=== PATIENT | female | born 1985 | race Caucasian/White ===

== ENCOUNTER 2016-05-11 07:30 | Inpatient (IN) | payer OTHER ==
[2016-05-11] MEDS: LACTATED RINGERS SOLUTION 1,000 ML IV SCH (08:05)
[2016-05-11] MEDS ORDERED: CITRIC ACID/SODIUM CITRATE 30 ML UNIT-DOSE CUP PO ONE (08:35)
[2016-05-11 08:43] VITALS: BMI 20.1
--- NOTE | 2016-05-11 08:46 | HP ---
Past Medical History - Primary Care Physician PCP:: Klaudia Hardy - Admission Chief Complaint: 30 yrs 36.4 weeks , previous c/secx2 , onset of LP since 6.00am , came by ambulence.. requests for repeat c/section. pt refusing History of Present Illness: care at [facility] High risk due to previous 2 children have end stage renal disease ( ESRD ) . pt states she had work up done , current fetus is normal she was last seen by her PMD at [facility] off 05/10/16, us was normal,, amniotic fluid was normal, she was 2 cm dilated she sigmed BTL papers only yesterday her pncouse was uneventful wt gain 27 lbs medical records obtained prenatla work up O Pos, Hbsag neg, Rpr nr,, Rubella immune, Hiv neg, Quantiferon neg, varicella immune, lead neg, sickle neg .anemia refused GCT Nt screen neg, Afp neg, Materna T-21 neg. Serial sono for growth are done. Anatomy sono wnl Last sono from 04/22/16 efw 2292 gm (44% tile ) growth , bpp8/8, EAMON 15.57 History Source: Patient, Medical Record - Past Medical History Cardiovascular: No: HTN, Murmur Pulmonary: No: Asthma Gastrointestinal: No: Constipation Renal/: No: UTI ...: 6 ...Para: 3 ...Term: 1 ...: 2 ...Induced : 2 ...EDC by Sono: 06/04/16 (36.4 weeks ) Additional OB History: 2004 primary c/section 28 weeks 3'6" [facility] infant has ESRD. 2009 repeat c/section term pregn 6'8" [facility] infant normal. 2013 28 weeks 5'8" at [facility], has ESRD Heme/Onc: Yes: Anemia Infectious Disease: No: HIV, STD's Psych: No: Addictions, Anxiety, Bipolar, Depression Additional Medical History: anxiety - Past Surgical History Past Surgical History: Yes: (2004, 2009) Hx Myomectomy: No Hx Transabdominal Cerclage: No - Smoking History Smoking history: Current every day smoker Have you smoked in the past 12 months: Yes Aproximately how many cigarettes per day: 15 - Alcohol/Substance Use Hx Alcohol Use: No History of Substance Use: reports: None - Social History ADL: Independent History of Recent Travel: No Home Medications - Allergies Allergies/Adverse Reactions: Allergies Allergy/AdvReac Type Severity Reaction Status Date / Time erythromycin base Allergy Mild Verified 05/11/16 09:40 [Erythromycin Base] fluconazole [From Diflucan] Allergy Verified 05/11/16 09:40 Penicillins Allergy Rash Verified 05/11/16 09:40 - Home Medications Home Medications: Ambulatory Orders Vit #108/Iron/FA [ One Tablet] 1 tab PO DAILY 05/11/16 Physical Exam - Maternity Vital Signs: Selected Entries 05/11/16 08:10 Temperature 97.6 F Pulse Rate 86 Respiratory 20 Rate Blood Pressure 118/70 Weight 110 lb Constitutional: Yes: Well Nourished, Moderate Distress Eyes: Yes: WNL HENT: Yes: WNL Neck: Yes: WNL Cardiovascular: Yes: WNL Lungs: Clear to auscultation Breast(s): Yes: WNL - Abdominal Exam/OB Fundal Height: 34 Number of Fetuses: Single Presentation: Vertex Contractions: Yes Regularity: Regular (q 5 min) Intensity: Mod/Strong Monitor Mode: External Heart Rate (range): 140-150 Heart Rate Location: [facility] Category: I Accelerations: Uniform Decelerations: None - Vaginal Exam/OB Vaginal Bleediing: No Dilatation (cm): 3 Effacement (%): 100 Amniotic Membrane Status: Intact Presentation: Vertex/Position Station: -1 (-1/0 station, exam at 8.10 am) - Physical Exam Musculoskeletal: Yes: WNL Extremities: No: Calf Tenderness Edema: No Integumentary: Yes: Incision (old pfannenstreil scar) Deep Tendon Reflex Grade: Normal +2 ...Motor Strength: WNL Psychiatric: Yes: WNL, Alert, Oriented - Labs Lab Results: Laboratory Tests 05/11/16 05/11/16 05/11/16 08:25 08:25 08:25 WBC 14.1 H Hgb 10.8 D Hct 33.5 Plt Count 437 H D Neutrophils % 75.4 Lymphocytes % 17.2 Monocytes % 6.4 Eosinophils % 0.6 Basophils % 0.4 Sodium 138 Potassium 3.8 Chloride 106 Carbon Dioxide 22 BUN 6 L D Creatinine 0.5 L Random Glucose 68 L AST 14 L ALT 16 Blood Type O POSITIVE Antibody Screen Negative Problem List - Problems (1) 36 to 37 weeks gestation of Code(s): TQY5090 - (2) Previous section complicating Code(s): O34.219 - MATERNAL CARE FOR UNSP TYPE SCAR FROM PREVIOUS DEL (3) Labor established Code(s): TUO0169 - Assessment/Plan 30 yrs , previous c/section x2 followed by , 36.4 weeks in labor, refuses , requests for repeat c/section . Plan repeat c/section
[2016-05-11 08:54] LABS: URINE APPEARANCE SLCLOUDY; URINE BILIRUBIN NEGATIVE (NEGATIVE); URINE BLOOD NEGATIVE (NEGATIVE); URINE COLOR STRAW; URINE GLUCOSE (UA) NEGATIVE (NEGATIVE); URINE KETONE NEGATIVE (NEGATIVE); URINE NITRITE NEGATIVE (NEGATIVE); URINE PROTEIN NEGATIVE (NEGATIVE); URINE UROBILINOGEN NEGATIVE E.U./dl (0.2-1.0)
[2016-05-11 08:55] LABS: URINE LEUK ESTERASE 2+ (NEGATIVE)
[2016-05-11 09:00] LABS: GRANULAR CASTS 5 /lpf; URINE BACTERIA RARE /hpf (NONE SEEN); URINE RBC 1 /hpf (0-3); URINE WBC 4 /hpf (3-5)
[2016-05-11 09:10] LABS: URINE MARIJUANA THC NEGATIVE ng/ml (CUTOFF=50)
[2016-05-11 09:17] LABS: INR 1.06 (0.82-1.09); PROTHROMBIN TIME (PATIENT) 11.7 SEC (9.98-11.88)
[2016-05-11 09:28] LABS: ALBUMIN 2.6 g/dl (3.4-5.0); ANION GAP 10 (8-16); BASOPHIL 0.4 % (0-2.0); CALCIUM 8.7 mg/dL (8.5-10.1); CO2 22 mmol/L (21-32); CREATININE 0.5 mg/dL (0.55-1.02); EOSINOPHIL 0.6 % (0-4.5); GLUCOSE,RANDOM 68 mg/dL (74-106); MCH 27.8 pg (25.7-33.7); MCHC 32.4 g/dl (32.0-36.0); MEAN CELL VOLUME 85.7 fl (80-96); MEAN PLT VOLUME 8.1 fl (7.5-11.1); NEUTROPHILS 75.4 % (42.8-82.8); PLATELET COUNT 437 K/MM3 (134-434); RDW 14.3 % (11.6-15.6); SGOT/AST 14 U/L (15-37); SGPT/ALT 16 U/L (12-78); WHITE BLOOD COUNT 14.1 K/mm3 (4.0-10.0)
[2016-05-11 09:31] LABS: ALK PHOS 255 U/L (45-117); BILIRUBIN,TOTAL 0.8 mg/dL (0.2-1.0)
[2016-05-11 10:13] LABS: HIV 1 & 2 AB NEGATIVE; HIV 1 AGp24 NEGATIVE
[2016-05-11] MEDS ORDERED: ONDANSETRON 4 MG/2 ML VIAL IVPB PRN (10:38)
[2016-05-11] MEDS ORDERED: METHYLERGONOVINE MALEATE 0.2 MG/1 ML AMP IM PRN (11:03)
[2016-05-11] MEDS ORDERED: oxyCODONE HCL 5 MG TABLET PO PRN ×2 (11:03)
[2016-05-11 11:11] LABS: ARTERIAL BLD GAS O2 SATURATION 10.3 % (90-98.9); ARTERIAL BLOOD GAS BASE EXCESS -1.7 meq/l (-2-2); ARTERIAL BLOOD GAS HCO3 25.7 meq/L (22-26); ARTERIAL BLOOD GAS pH 7.29 (7.35-7.45); LPM/O2% 21%; PT. ON O2? NO; TYPE OF O2 ROOM AIR
[2016-05-11 11:14] LABS: ARTERIAL BLOOD GAS PO2 8.2 mmHg (80-100); VENOUS PH 7.33 (7.32-7.42)
[2016-05-11 11:15] LABS: VENOUS BLOOD GAS HCO3 24.6 meq/L (19-25)
--- NOTE | 2016-05-11 11:17 | PN ---
Delivery - Delivery Section: Repeat, Low Flap Transverse (36.4 weeks , previous c/sx2,in active labor ,refused ,) EBL (cc): 500 (200ml zhang color ) Delivery, Single - Stages of Labor Date 1st Stage Initiatied: 05/11/16 Time 1st Stage Initiated: 06:00 Date of Delivery: 05/11/16 Time of Delivery: 10:23 Date Placenta Delivered: 05/11/16 Time Placenta Delivered: : Placenta: Yes: Manual Removal, Uterine Exploration - Condition of Infant Vice President Regulatory/Guest Service Supervisor Present: Yes Name: Zee Boyd Gender: Male Weight: 6 lb 3 oz Position: OA Total Hours ROM (Hrs/Mins): 2 min , clear - 1 Minute Total Score: 9 5 Minutes Total Score: 9 - Feeding Plan Initial Plan: Exclusive throughout hospitalization Remarks - Remarks Remarks: 30 yrs , 36.4 weeks, in labor, previous c/sx2,& , refused offer , requests for c/section . pnc at [facility] , h/o labor x2 h/o 2 infants born with ESRD Gbs unknown, iv C lindamycin 900 mg started prior to c/section . Intra op course uneventful
--- NOTE | 2016-05-11 11:21 | OP ---
Operative Note - Note: Operative Date: 05/11/16 Pre-Operative Diagnosis: 36.4 weeks, previous c/section x2, & , refused , requests for repeat c/section Findings: 10.23 am, , Baby Boy, Vx OA position, 9/9, Wt 6'3" Both tubes & ovaries normal Surgeon: Klaudia Hardy Emissions Engineer: Quentin Dye Anesthesiologist/TURNER AND FORMER AUTOMATIC: Mateusz Guallpa Anesthesia: Spinal Specimens Removed: placenta. cord segment for cord gases. cord blood Estimated Blood Loss (mls): 500 Drains, Volume Out (mls): 200 (zhang color, ruelas out put ) Operative Report Dictated: Yes
[2016-05-11] MEDS: IBUPROFEN 800 MG/8 ML IJ IVPB PRN ×2 (12:10→21:58)
[2016-05-11] MEDS: OXYTOCIN 20 UNITS in 0.9% NS 1,000 ML IV SCH (17:51)
[2016-05-11] MEDS: CLINDAMYCIN 600MG PREMIX IVPB 50 ML IVPB SCH ×2 (17:53→18:07)
[2016-05-11] MEDS: FERROUS SO4 325 MG TABLET (FP) PO SCH (22:45)
[2016-05-12] MEDS: CLINDAMYCIN 600MG PREMIX IVPB 50 ML IVPB SCH ×3 (01:24→10:11)
--- NOTE | 2016-05-12 02:38 | PN ---
Post Progress Note Post Day: 1 Type of Delivery: Repeat C/S Vital Signs: Vital Signs Temperature 97.8 F 05/11/16 22:00 Pulse Rate 84 05/11/16 22:00 Respiratory Rate 20 05/12/16 01:00 Blood Pressure 106/65 05/11/16 22:00 O2 Sat by Pulse Oximetry (%) 100 05/11/16 11:55 Breast Exam: Yes: Soft Uterus: Yes: Fundus Firm Incision: Yes: Dressing dry and intact Abdomen/GI: Yes: Abdomen soft Lochia: Yes: Rubra Lochia, amount: Small Extremities: No: Calves non-tender, Calf tenderness, Edema Perineum: Yes: Intact Activity: Ambulating - Labs Labs: CBC WBC 14.1 K/mm3 (4.0-10.0) H 05/11/16 08:25 RBC 3.91 M/mm3 (3.60-5.2) 05/11/16 08:25 Hgb 10.8 GM/dL (10.7-15.3) D 05/11/16 08:25 Hct 33.5 % (32.4-45.2) 05/11/16 08:25 MCV 85.7 fl (80-96) 05/11/16 08:25 MCHC 32.4 g/dl (32.0-36.0) 05/11/16 08:25 RDW 14.3 % (11.6-15.6) D 05/11/16 08:25 Plt Count 437 K/MM3 (134-434) H D 05/11/16 08:25 MPV 8.1 fl (7.5-11.1) 05/11/16 08:25 Neutrophils % 75.4 % (42.8-82.8) 05/11/16 08:25 Lymphocytes % 17.2 % (8-40) 05/11/16 08:25 Monocytes % 6.4 % (3.8-10.2) 05/11/16 08:25 Eosinophils % 0.6 % (0-4.5) 05/11/16 08:25 Basophils % 0.4 % (0-2.0) 05/11/16 08:25 Assessment/Plan as above continue care oob pain meds
--- NOTE | 2016-05-12 06:47 | OP ---
DATE OF OPERATION: 05/11/2016 SURGEON: Tata Garcia MD PREOPERATIVE DIAGNOSIS: A 36.4-week, in labor, previous section x2, refused vaginal after section, and requests for section. FINDINGS: This 30-year-old 6 para 1-2-2-3 has history of previous C- sections x2 and history of 2 previous labors and history of 2 babies born with end-stage renal disease, and she was in active labor, 3 cm dilated, 100% effaced , and station 1 to 0. This patient has a history of previous x2 followed by . She was offered trial, and she refused, and she requested . PROCEDURE: Abdomen was shaved, prepped. Luke catheter was placed. Patient was taken to the operating room table, and spinal anesthesia was given. She was placed in supine position. Abdomen was painted and draped in the usual manner. A Pfannenstiel incision was made through previous scar, and previous excess scar was excised, and subcutaneous tissue, scar tissue, anterior rectus sheath was incised transversely, and the rectus muscle was . Parietal peritoneum was opened vertically. There was no definite bladder peritoneum seen. There were adhesions, which were lysed, and the bladder was pushed down. Lower uterine segment was isolated, and the lower uterine segment was incised transversely. It was already much thinned out. The amniotic fluid was clear. Baby was delivered from OA position at 10:23 a.m., a baby boy, was 9, 9, and babys weight was 6 pounds 3 ounces. Cord was clamped. The cord blood was collected. Before cord blood collection, the segment of the cord was sent for the cord blood gases. Flake Miller Helper, Dr. Boyd, was present in the room. Placenta was removed completely with the membranes, and then, uterine incision was closed in 2 layers, the 1st layer was a continuous locking with Biosyn 0 suture , 2nd layer was a continuous intermittent locking with a Biosyn 0 suture. Hemostasis was verified. Both tubes and ovaries were normal. Irrigation was done. Sponge, instrument, and needle counts were correct, and closure of the abdomen was done. The parietal peritoneum was closed with Vicryl 0 suture. Muscles were approximated together with a Vicryl 0 suture, and interrupted sutures were taken. Then, anterior rectus sheath scar tissue was mobilized from the skin, and then, anterior rectus sheath was closed with a Vicryl 0 suture continuous sutures were taken. Subcutaneous tissue was approximated to bring the skin edges together and with interrupted sutures of Biosyn 0 suture, and then, skin was approximated with eugenio. Pressure dressing was given. Blood clots were removed from the vagina. Estimated blood loss was 500 mL. Intraoperative urine output was 200 mL. It was zhang colored, and she has received 900 mg of IV clindamycin preoperatively. She has an allergy to PENICILLIN. She was transferred to the recovery room in stable condition. TATA GARCIA M.D. [id number] MTDD
[2016-05-12] MEDS: IBUPROFEN 600 MG TABLET (FP) PO PRN ×3 (07:26→22:28)
[2016-05-12] MEDS: SIMETHICONE 80 MG TAB.CHEW (FP) PO PRN ×3 (07:27→22:28)
[2016-05-12] MEDS: ACETAMINOPHEN 325 MG TABLET (FP) PO PRN ×3 (07:27→22:27)
[2016-05-12 08:32] LABS: BASOPHIL 0.4 % (0-2.0); EOSINOPHIL 1.1 % (0-4.5); MCH 27.7 pg (25.7-33.7); MCHC 32.3 g/dl (32.0-36.0); MEAN CELL VOLUME 85.7 fl (80-96); NEUTROPHILS 72.8 % (42.8-82.8); PLATELET COUNT 376 K/MM3 (134-434); WHITE BLOOD COUNT 12.6 K/mm3 (4.0-10.0)
[2016-05-12] MEDS ORDERED: DIPHTH,PERTUSS(ACELL),TET 0.5 ML DISP.SYRIN IM ONE (10:00)
[2016-05-12] MEDS: FERROUS SO4 325 MG TABLET (FP) PO SCH ×2 (10:09→21:32)
[2016-05-12] MEDS: ENOXAPARIN NA (PORCINE) 40 MG/0.4 ML DISP.SYRIN SQ SCH (10:09)
[2016-05-12] MEDS: PRENATAL VITAMINS W/ FOLIC ACID TABLET (FP) PO SCH (10:09)
[2016-05-12] MEDS ORDERED: BISACODYL 10 MG SUPP.RECT RC PRN (11:03)
--- NOTE | 2016-05-12 12:33 | PN ---
Progress Note (short form) - Note Progress Note: Anesthesia postop note 30 y/o F s/p spinal anesthesia for section, duramorph for postop pain control POD#1, vss, aaox3, pain well controlled, ambulating, no complaints. No anesthesia complications.
[2016-05-12] MEDS: OXYTOCIN 20 UNITS in 0.9% NS 1,000 ML IV SCH (18:13)
[2016-05-12] MEDS: LACTATED RINGERS SOLUTION 1,000 ML IV SCH (18:14)
[2016-05-13] MEDS: IBUPROFEN 600 MG TABLET (FP) PO PRN (07:30)
[2016-05-13] MEDS: ACETAMINOPHEN 325 MG TABLET (FP) PO PRN (07:30)
--- NOTE | 2016-05-13 08:34 | PN ---
Progress Note (short form) - Note Progress Note: pod 2 wants to go home today, risks explained CBC, BMP 05/12/16 07:30 05/11/16 08:25 Last Vital Signs Temp Pulse Resp BP Pulse Ox 98.9 F 75 20 109/64 100 05/12/16 21:55 05/12/16 21:55 05/12/16 21:55 05/12/16 21:55 05/11/16 11:55 abdomen soft, no distension, no cva, incision dry, clean no calf tenderness no excess vaginal bleeding risks of early discharged explained willl rtc on Monday for eugenio removal
[2016-05-13] MEDS: FERROUS SO4 325 MG TABLET (FP) PO SCH (09:12)
[2016-05-13] MEDS: PRENATAL VITAMINS W/ FOLIC ACID TABLET (FP) PO SCH (09:12)
[2016-05-13] MEDS: ENOXAPARIN NA (PORCINE) 40 MG/0.4 ML DISP.SYRIN SQ SCH (09:14)
[2016-05-13 09:18] VITALS: BP 121/74; PULSE 89; TEMP 97.7
--- NOTE | 2016-05-13 10:55 | DS ---
Physical Exam-PROCESS EXCELLENCE MANAGER Vital Signs: Vital Signs Temperature 97.7 F 05/13/16 09:14 Pulse Rate 89 05/13/16 09:14 Respiratory Rate 20 05/13/16 09:14 Blood Pressure 121/74 05/13/16 09:14 O2 Sat by Pulse Oximetry (%) 100 05/11/16 11:55 Constitutional: Yes: No Distress, Pallor Eyes: Yes: WNL HENT: Yes: WNL Neck: Yes: WNL Cardiovascular: Yes: WNL Respiratory: Yes: WNL Gastrointestinal: Yes: WNL, Normal Bowel Sounds, Soft, Other (tolerating diet well). No: Distention Renal/: Yes: WNL, Other (voiding without difficulty) ....Post : Yes: Uterus firm, Uterus non-tender, Moderate lochia rubra Breast(s): Yes: WNL Musculoskeletal: Yes: WNL Extremities: No: Calf Tenderness Edema: No Integumentary: Yes: Tattoos Wound/Incision: Yes: Clean/Dry, Renick Intact, Open to air. No: Draining, Bleeding, Excoriated Neurological: Yes: WNL ...Motor Strength: WNL Psychiatric: Yes: WNL, Alert, Oriented Labs: CBC, BMP 05/12/16 07:30 05/11/16 08:25 Delivery - Delivery Section: Repeat, Low Flap Transverse (36.4 weeks , previous c/sx2,in active labor ,refused ,) Type of Anesthesia: Spinal EBL (cc): 500 (200ml zhang color ) Delivery, Single - Stages of Labor Date 1st Stage Initiatied: 05/11/16 Time 1st Stage Initiated: 06:00 Date of Delivery: 05/11/16 Time of Delivery: 10:23 Time Placenta Delivered: 10:25 Placenta: Yes: Manual Removal, Uterine Exploration - Condition of Infant Artillery Maintenance Supervisor/Supervisor Bottle Machines Present: Yes Name: Gro[place] Infant Gender: Male Weight: 6 lb 3 oz Position: OA Total Hours ROM (Hrs/Mins): 2 min , clear - 1 Minute Total Score: 9 5 Minutes Total Score: 9 - Feeding Plan Initial Plan: Elected not to breastfeed exclusively throughout hospitalization Remarks - Remarks Remarks: 30 yrs , 36.4 weeks, in labor, previous c/sx2,& , refused offer , requests for c/section . pnc at [facility] , h/o labor x2 h/o 2 infants born with ESRD Gbs unknown, iv C lindamycin 900 mg started prior to c/section . Intra op course uneventful post op course uneventful. she insists to be discharged today, post op day#2 she will rtc for eugenio removal discharge today Discharge Summary Reason For Visit: C/SECTION Current Active Problems 36 to 37 weeks gestation of (Acute) Delivery by emergency section (Acute) Labor established (Acute) Previous section complicating (Acute) Condition: Stable - Instructions Diet, Activity, Other Instructions: Post Instructions DIET: Continue good diet high in protein, calcium, and iron rich foods. Drink at least eight (8) glasses of water daily in addition to other fluids. ct Regular diet MEDICATIONS: Continue vitamins and iron as previously directed. Motrin and Tylenol may be taken for minor discomfort. ACTIVITY: Mild to moderate exercise may be started in two (2) weeks. Take frequent rest periods. Resume normal activity after six (6) week check up. WOUND CARE OF OPERATIVE SITE: Continue use of perineal bottle until vaginal discharge stops. Keep area clean. Shower daily. Keep abdominal wound dry. Report any drainage or redness to physician. Tub baths, tampons and douches are not permitted for 6 weeks. Breast feeding & or Bottle feeding BREAST CARE: (For those that are not breast feeding): If engorgement occurs: Wear tight fitting bra. Take Tylenol or Motrin for pain. Apply cold packs (ice in bags to each breast ) FAMILY PLANNING: There are many control alternatives to pursue and they should be discussed at your first office visit. You may resume sexual activity after your six (6) week check up. (Remember, breast feeding is not a contraceptive) NEXT PHYSICIAN APPOINTMENT: Be certain to call for a one (1) week appointment, unless otherwise directed. , RTC, at ,, [facility] 04/19/16 for eugenio removal , call [phone] for appt on Monday with Dr cantor [facility] or got to Emergency Dept if you have any of the following: Heavy vaginal bleeding Painful urination Leg pain Unusual odor noted to vaginal bleeding High fever Red streaking noted on breast Referrals: Klaudia Cantor MD [Staff Physician] - Disposition: HOME - Home Medications Comprehensive Discharge Medication List: Ambulatory Orders Vit #108/Iron/FA [ One Tablet] 1 tab PO DAILY 05/11/16 Acetaminophen [Tylenol .Regular Strength -] 650 mg PO Q4H PRN #0 tablet Ferrous Sulfate [Feosol] 325 mg PO BID #60 tab 05/12/16 Ibuprofen [Motrin -] 600 mg PO Q4H PRN #30 tablet 05/12/16 Vitamins (Sjr) - 1 tab PO DAILY #30 tablet 05/12/16
== END 2016-05-13 12:30 | disposition home or self-care (01) | DRG 540 ==
LOC: JDEL 07:30 → JLDR 08:10 → J3W 12:49
PROVIDERS: ADMIT Obstetrics & Gynecology; ATTEND Obstetrics & Gynecology
PROC: 10D00Z1 Extraction of Products of Conception, Low, Open Approach (ICD-10-PCS; principal; 2016-05-11)
DX: O34.211 Maternal care for low transverse scar from previous cesarean delivery (principal); O99.334 Smoking (tobacco) complicating childbirth; F17.210 Nicotine dependence, cigarettes, uncomplicated; Z3A.37 37 weeks gestation of pregnancy; Z37.0 Single live birth
CPT/HCPCS: 36415; 36600; 80053; 80307; 81003; 81015; 82803; 85025; 85610; 85730; 86593; 86850; 86900; 86901; 87389; 88307-TC

== ENCOUNTER 2016-11-30 17:15 | Emergency (ER) | payer OTHER ==
[2016-11-30 17:24] VITALS: BP 106/70; PULSE 71; TEMP 98.3; BMI 15.5
--- NOTE | 2016-11-30 17:59 | PDOC ---
History of Present Illness - General Chief Complaint: Cold Symptoms Stated Complaint: Cold symptoms Time Seen by Provider: 11/30/16 17:44 History Source: Patient Exam Limitations: No Limitations - History of Present Illness Initial Comments: 11/30/16 17:55 Patient is a 31-year-old female, no significant medical history currently on no medication presents with moist productive cough for one week or worse at night concerned because she keeps her air conditioning on at night. Patient was seen by her primary care doctor Dr. Kate who told her she had COPD. Patient with no cough noted upon arrival, has been afebrile. Denies any chest pain or shortness of breath, no dyspnea. To emergency department today because she was concerned over the diagnosis of COPD. Past Medical History: Denies. Allergies: No known allergies Medications: None Family History: Non-contributory Social History: Denies smoking, alcohol use, or IVDU Review of Systems GENERAL/CONSTITUTIONAL: No fever or chills. No weakness. No weight change. HEAD, EYES, EARS, NOSE AND THROAT: No change in vision. No ear pain or discharge. No sore throat. CARDIOVASCULAR: No chest pain or shortness of breath. RESPIRATORY: Cough, no wheezing, or hemoptysis. GASTROINTESTINAL: No nausea, vomiting, diarrhea or constipation. No rectal bleeding. GENITOURINARY: No dysuria, frequency, or change in urination. MUSCULOSKELETAL: No joint or muscle swelling or pain. No neck or back pain. SKIN : No rash or easy bruising. Physical Exam: GENERAL: The patient is awake, alert, and fully oriented, in no acute distress. EYES: Pupils equal, round and reactive to light, extraocular movements intact, sclera anicteric, conjunctiva clear. ENT: Ears normal, nares patent, oropharynx clear without exudates. Moist mucous membranes. No uvula deviation NECK: Normal range of motion, supple without lymphadenopathy, JVD, or masses. LUNGS: Breath sounds equal, clear to auscultation bilaterally. Wheezes cleared with cough, and no crackles. HEART: Regular rate and rhythm, normal S1 and S2 without murmur, rub or gallop. ABDOMEN: Soft, nontender, normoactive bowel sounds. No guarding, no rebound. No masses. No bruising or abrasions MUSCULOSKELETAL: Normal range of motion, no edema. No clubbing or cyanosis. No cords, erythema, or tenderness. No CVA Tenderness with fist. NEUROLOGICAL: Cranial nerves II through XII grossly intact. Normal speech, normal gait. SKIN: Warm, Dry, normal turgor, no rashes or lesions noted. Past History - Past Medical History Allergies/Adverse Reactions: Allergies Allergy/AdvReac Type Severity Reaction Status Date / Time erythromycin base Allergy Mild Verified 11/30/16 17:19 [Erythromycin Base] fluconazole [From Diflucan] Allergy Verified 11/30/16 17:19 Penicillins Allergy Rash Verified 11/30/16 17:19 Home Medications: Ambulatory Orders Levofloxacin [Levaquin -] 500 mg PO DAILY #7 tablet 11/30/16 Anemia: No Asthma: No Cancer: No Cardiac Disorders: No Diabetes: No HTN: No Seizures: No Thyroid Disease: No - Surgical History Abdominal Surgery: Yes (c section x2) - Reproductive History (#): 3 Para: 2 Cervical CA: Yes (ABNORMAL PAP) Dysfunctional Uterine Bleeding: No Ectopic : No Endometrial CA: No Polycystic Ovaries: No - Immunization History Immunization Up to Date: Yes (2013) - Suicide/Smoking/Psychosocial Hx Smoking Status: Yes Smoking History: Current every day smoker Have you smoked in the past 12 months: Yes Number of Cigarettes Smoked Daily: 20 Cigars Per Day: 0 Information on smoking cessation initiated: Yes 'Breaking Loose' booklet given: 11/30/16 Hx Alcohol Use: No Drug/Substance Use Hx: No Substance Use Type: None Hx Substance Use Treatment: No *Physical Exam - Vital Signs Last Vital Signs Temp Pulse Resp BP Pulse Ox 98.3 F 71 18 106/70 99 11/30/16 17:16 11/30/16 17:16 11/30/16 17:16 11/30/16 17:16 11/30/16 17:16 ED Treatment Course - RADIOLOGY Radiology Studies Ordered: Category Date Time Status CHEST PA & LAT [RAD] Stat Radiology 11/30/16 17:48 Ordered Medical Decision Making - Medical Decision Making 11/30/16 17:59 A/P: Patient here for cough, none noted upon arrival however patient reports feeling congestion in her chest. Over diagnosis of COPD, no x-ray was performed today. Patient is requesting chest x-ray. Made aware of risks versus benefits of radiation exposure is aware, still requesting chest x-ray. 11/30/16 19:07 X-ray demonstrated minimal perihilar increased lung markings which are nonspecific and may be on the basis of mild hyperactive airway disease versus bronchitis. I will discharge patient home on azithromycin, she has an albuterol inhaler which she will use when necessary. Follow up with PMD, cool air humidifier. I discussed the physical exam findings, ancillary test results and final diagnoses with the patient. I answered all of the patient's questions. The patient was satisfied with the care received and felt comfortable with the discharge plan and treatment plan. The patient will call to arrange follow-up and will return to the Emergency Department with any new, persistent or worsening symptoms. *DC/Admit/Observation/Transfer Diagnosis at time of Disposition: Bronchitis - Discharge Dispostion Disposition: HOME Condition at time of disposition: Good Admit: No - Prescriptions Prescriptions: Levofloxacin [Levaquin -] 500 mg PO DAILY #7 tablet - Referrals Referrals: Henrique Kate [Primary Care Provider] - - Patient Instructions Printed Discharge Instructions: Acute Bronchitis (Alternative Therapy) Additional Instructions: Keep head of bed elevated 45 when sleeping Cool air humidifier Frequent chest PT Followup in the primary care doctor's office in 2 days for evaluation. If any respiratory distress, increased cough, inability to drink, increased wheezing please return immediately to emergency department.
== END 2016-11-30 19:21 | disposition home or self-care (01) ==
LOC: JERFT 17:15
DX: J40 Bronchitis, not specified as acute or chronic (principal); F17.210 Nicotine dependence, cigarettes, uncomplicated
CPT/HCPCS: 71020-TC; 84703; 99281-25

== ENCOUNTER 2016-12-11 17:18 | Emergency (ER) | payer OTHER ==
[2016-12-11 17:32] VITALS: BMI 20.1
[2016-12-11] MEDS ORDERED: predniSONE 20 MG TABLET (UD) PO ONE (17:39)
--- NOTE | 2016-12-11 17:39 | PDOC ---
History of Present Illness - General History Source: Patient Exam Limitations: No Limitations - History of Present Illness Initial Comments: 12/11/16 17:46 31 y/o F with a PMHx of COPD. asthma presents to the ED with difficulty breathing, sore throat and cough for a few days. She has taken multiple albuterol treatements with no relief. Patient reports she was recently diagnosed with COPD and quit cigarette smoking 6 days ago. She was also seen in the ED on 11/30/16 for similar cough and was discharged on Levaquin. Denies chest pain. Denies fever, chills, N/V/D. <Kassidy Hutton - Last Filed: 12/11/16 17:47> <Valarie Mercado - Last Filed: 12/11/16 18:44> - General Chief Complaint: Respiratory Stated Complaint: DIFFICULT TO BREATH Time Seen by Provider: 12/11/16 17:32 Past History <Kassidy Hutton - Last Filed: 12/11/16 17:47> - Past Medical History Anemia: No Asthma: No Cancer: No Cardiac Disorders: No Diabetes: No HTN: No Seizures: No Thyroid Disease: No - Surgical History Abdominal Surgery: Yes (c section x2) - Reproductive History (#): 3 Para: 2 Cervical CA: Yes (ABNORMAL PAP) Dysfunctional Uterine Bleeding: No Ectopic : No Endometrial CA: No Polycystic Ovaries: No - Immunization History Immunization Up to Date: Yes (2013) - Suicide/Smoking/Psychosocial Hx Smoking Status: Yes Smoking History: Former smoker Have you smoked in the past 12 months: No Number of Cigarettes Smoked Daily: 15 If you are a former smoker, when did you quit?: 11/2016 Cigars Per Day: 0 Information on smoking cessation initiated: No 'Breaking Loose' booklet given: 02/16/14 Hx Alcohol Use: No Drug/Substance Use Hx: No Substance Use Type: None Hx Substance Use Treatment: No <Valarie Mercado - Last Filed: 12/11/16 18:44> - Past Medical History Allergies/Adverse Reactions: Allergies Allergy/AdvReac Type Severity Reaction Status Date / Time erythromycin base Allergy Mild Verified 12/11/16 17:32 [Erythromycin Base] fluconazole [From Diflucan] Allergy Verified 12/11/16 17:32 Home Medications: Ambulatory Orders Levofloxacin [Levaquin -] 500 mg PO DAILY #7 tablet 11/30/16 Prednisone [Deltasone -] 40 mg PO DAILY #8 tablet 12/11/16 Review of Systems - Review of Systems Comments:: 12/11/16 17:46 GENERAL/CONSTITUTIONAL: No fever or chills. No weakness. HEAD, EYES, EARS, NOSE AND THROAT: (+) sore throat, cough. No change in vision. No ear pain or discharge. CARDIOVASCULAR: (+) shortness of breath. No chest pain. RESPIRATORY: No cough, wheezing, or hemoptysis. GASTROINTESTINAL: No nausea, vomiting, diarrhea or constipation. GENITOURINARY: No dysuria, frequency, or change in urination. MUSCULOSKELETAL: No joint or muscle swelling or pain. No neck or back pain. SKIN: No rash NEUROLOGIC: No headache, vertigo, loss of consciousness, or change in strength/ sensation. ENDOCRINE: No increased thirst. No abnormal weight change. HEMATOLOGIC/LYMPHATIC: No anemia, easy bleeding, or history of blood clots. ALLERGIC/IMMUNOLOGIC: No hives or skin allergy. <Kassidy Hutton A - Last Filed: 12/11/16 17:47> *Physical Exam - Vital Signs Last Vital Signs Temp Pulse Resp BP Pulse Ox 97.7 F 76 18 120/76 100 12/11/16 17:19 12/11/16 17:19 12/11/16 17:19 12/11/16 17:19 12/11/16 17:19 <Kassidy Hutton - Last Filed: 12/11/16 17:47> - Vital Signs Last Vital Signs Temp Pulse Resp BP Pulse Ox 97.7 F 76 18 120/76 100 12/11/16 17:19 12/11/16 17:19 12/11/16 17:19 12/11/16 17:19 12/11/16 17:19 - Physical Exam Comments: GENERAL: Awake, alert, and fully oriented, in no acute distress HEAD: No signs of trauma EYES: PERRLA, EOMI, sclera anicteric, conjunctiva clear ENT: Auricles normal inspection, hearing grossly normal, nares patent, oropharynx clear without exudates. Moist mucosa NECK: Normal ROM, supple, no lymphadenopathy, JVD, or masses LUNGS: Dec air entry B/L, no wheezes. Speaking full sentences. +Tachypnea. + Pursed lip breathing at times. HEART: Regular rate and rhythm, normal S1 and S2, no murmurs, rubs or gallops ABDOMEN: Soft, nontender, normoactive bowel sounds. No guarding, no rebound. No masses EXTREMITIES: Normal range of motion, no edema. No clubbing or cyanosis. No cords, erythema, or tenderness NEUROLOGICAL: Cranial nerves II through XII grossly intact. Normal speech, normal gait SKIN: Warm, Dry, normal turgor, no rashes or lesions noted. <Valarie Mercado - Last Filed: 12/11/16 18:44> ED Treatment Course - Medications Given in the ED: ED Medications Discontinued Medications Generic Name Dose Route Start Last Admin Trade Name Edith PRN Reason Stop Dose Admin Prednisone 60 mg 12/11/16 17:39 12/11/16 17:43 Deltasone - PO 12/11/16 17:40 60 mg ONCE ONE Administration <Kassidy Hutton - Last Filed: 12/11/16 17:47> Medical Decision Making - Medical Decision Making 12/11/16 18:44 Pt reassessed. Exam improved. Lungs clear. Stable for DC home. Will treat with short course of steroids. <Valarie Mercado - Last Filed: 12/11/16 18:44> *DC/Admit/Observation/Transfer - Attestations Scribe Attestion: 12/11/16 17:46 Documentation prepared by Kassidy Hutton, acting as medical director occupational health for Valarie Mercado MD. <Kassidy Hutton - Last Filed: 12/11/16 17:47> - Discharge Dispostion Admit: No <Valarie Mercado - Last Filed: 12/11/16 18:44> Diagnosis at time of Disposition: COPD (chronic obstructive pulmonary disease) Qualifiers: COPD type: unspecified COPD Qualified Code(s): J44.9 - Chronic obstructive pulmonary disease, unspecified - Discharge Dispostion Disposition: HOME Condition at time of disposition: Stable - Prescriptions Prescriptions: Prednisone [Deltasone -] 40 mg PO DAILY #8 tablet - Referrals Referrals: Henrique Kate [Primary Care Provider] - - Patient Instructions Printed Discharge Instructions: DI for Chronic Obstructive Pulmonary Disease
[2016-12-11] MEDS ORDERED: predniSONE 20 MG TABLET (UD) ONE (17:41)
[2016-12-11] MEDS: ALBUTEROL SO4 2.5/IPRATROPIUM 0.5 INH SOL 3 ML VIAL.NEB. NEB SCH ×3 (17:45→18:15)
[2016-12-11 18:54] VITALS: BP 117/66; PULSE 80; TEMP 98.6
== END 2016-12-11 18:53 | disposition home or self-care (01) ==
LOC: JER 17:18
PROC: 3E0F7GC Introduction of Other Therapeutic Substance into Respiratory Tract, Via Natural or Artificial Opening (ICD-10-PCS; principal; 2016-12-11)
DX: J44.9 Chronic obstructive pulmonary disease, unspecified (principal); J45.909 Unspecified asthma, uncomplicated; Z87.891 Personal history of nicotine dependence
CPT/HCPCS: 94640; 99284-25

== ENCOUNTER 2017-06-02 09:37 | Emergency (ER) | payer SELFPAY ==
[2017-06-02 09:45] VITALS: BP 109/79; PULSE 85; TEMP 97.6; BMI 19.1
--- NOTE | 2017-06-02 10:44 | PDOC ---
*Physical Exam - Vital Signs Last Vital Signs Temp Pulse Resp BP Pulse Ox 97.6 F 85 18 109/79 100 06/02/17 09:41 06/02/17 09:41 06/02/17 09:41 06/02/17 09:41 06/02/17 09:41 - Physical Exam General Appearance: Yes: Nourished, Appropriately Dressed HEENT: positive: Pharyngeal Erythema, Tonsillar Erythema. negative: Muffled/ Hoarse voice, Tonsillar Exudate, Nasal Congestion, Rhinorrhea, TM Erythema, Excessive drooling, Thrush Neck: negative: Lymphadenopathy (R), Lymphadenopathy (L) Respiratory/Chest: positive: Chest Tender, Lungs Clear, Normal Breath Sounds Cardiovascular: positive: Regular Rhythm, Regular Rate, S1, S2 Neurologic: positive: transmission inspector II-XII NML intact *DC/Admit/Observation/Transfer Diagnosis at time of Disposition: Sorethroat - Discharge Dispostion Disposition: HOME Condition at time of disposition: Stable Admit: No - Prescriptions Prescriptions: Ibuprofen 600 mg PO ACDIN #21 tablet - Referrals Referrals: Henrique Kate [Primary Care Provider] - - Patient Instructions Printed Discharge Instructions: Viral Pharyngitis Additional Instructions: salt water gargle motrin prn pain - Post Discharge Activity
--- NOTE | 2017-06-02 10:53 | PDOC ---
History of Present Illness - General Chief Complaint: Sore Throat Stated Complaint: THROAT PAIN Time Seen by Provider: 06/02/17 10:38 History Source: Patient Exam Limitations: No Limitations Past History - Travel Traveled outside of the country in the last 30 days: No - Past Medical History Allergies/Adverse Reactions: Allergies Allergy/AdvReac Type Severity Reaction Status Date / Time erythromycin base Allergy Mild Verified 06/02/17 09:45 [Erythromycin Base] fluconazole [From Diflucan] Allergy Verified 06/02/17 09:45 Home Medications: Ambulatory Orders Ibuprofen 600 mg PO ACDIN #21 tablet 06/02/17 Anemia: No Asthma: No Cancer: No Cardiac Disorders: No COPD: No Diabetes: No HTN: No Seizures: No Thyroid Disease: No - Surgical History Abdominal Surgery: Yes (c section x2) - Reproductive History (#): 3 Para: 2 Cervical CA: Yes (ABNORMAL PAP) Dysfunctional Uterine Bleeding: No Ectopic : No Endometrial CA: No Polycystic Ovaries: No - Immunization History Immunization Up to Date: Yes (2013) - Suicide/Smoking/Psychosocial Hx Smoking Status: Yes Smoking History: Former smoker Have you smoked in the past 12 months: No Number of Cigarettes Smoked Daily: 15 If you are a former smoker, when did you quit?: 2046 Cigars Per Day: 0 Information on smoking cessation initiated: No 'Breaking Loose' booklet given: 02/16/14 Hx Alcohol Use: No Drug/Substance Use Hx: No Substance Use Type: None Hx Substance Use Treatment: No Review of Systems - Review of Systems Constitutional: No: Chills, Fever HEENTM: Yes: Throat Pain. No: Nose Congestion, Throat Swelling, Difficulty Swallowing Respiratory: No: Cough, Shortness of Breath, SOB at Rest Cardiac (ROS): No: Chest Pain *Physical Exam - Vital Signs Last Vital Signs Temp Pulse Resp BP Pulse Ox 97.6 F 85 18 109/79 100 06/02/17 09:41 06/02/17 09:41 06/02/17 09:41 06/02/17 09:41 06/02/17 09:41 - Physical Exam General Appearance: Yes: Appropriately Dressed HEENT: positive: Pharyngeal Erythema, Tonsillar Erythema. negative: Muffled/ Hoarse voice, Tonsillar Exudate, Nasal Congestion, Rhinorrhea, TM Bulging, TM Erythema, Excessive drooling Neck: negative: Lymphadenopathy (R), Lymphadenopathy (L) Respiratory/Chest: positive: Lungs Clear, Normal Breath Sounds Cardiovascular: positive: Regular Rhythm, Regular Rate, S1, S2 Neurologic: positive: Fully Oriented Medical Decision Making - Medical Decision Making 06/02/17 10:49 Patient is a 31-year-old female comes in with sore throat X 1wk, denies cough, f /c, drooling PE consistent with erythema pharynx, no exudate, no lymphadenopathy or [employer]JOR [employer]SEM[employer]ER suspect viral pharygitis, motrin prn pain/salt water gargle *DC/Admit/Observation/Transfer Diagnosis at time of Disposition: Sorethroat - Discharge Dispostion Disposition: HOME Condition at time of disposition: Stable - Prescriptions Prescriptions: Ibuprofen 600 mg PO ACDIN #21 tablet - Referrals Referrals: Henrique Kate [Primary Care Provider] - - Patient Instructions Printed Discharge Instructions: Viral Pharyngitis Additional Instructions: salt water gargle motrin prn pain - Post Discharge Activity
== END 2017-06-02 10:55 | disposition home or self-care (01) ==
LOC: JERFT 09:37
DX: J02.9 Acute pharyngitis, unspecified (principal); Z87.891 Personal history of nicotine dependence
CPT/HCPCS: 99281-25

== ENCOUNTER 2020-10-17 20:24 | Emergency (ER) | payer OTHER ==
[2020-10-17 20:29] VITALS: BP 108/72; PULSE 81; TEMP 98.1; BMI 16.0
== END 2020-10-17 21:32 | disposition left against medical advice (07) ==
LOC: JER 20:24
DX: R20.0 Anesthesia of skin (principal)
CPT/HCPCS: 99281-25

== ENCOUNTER 2021-04-27 18:08 | Emergency (ER) | payer OTHER ==
[2021-04-27 18:14] VITALS: BP 99/70; PULSE 94; TEMP 98.6; BMI 17.4
[2021-04-27] MEDS ORDERED: predniSONE 20 MG TABLET (UD) PO ONE (18:56)
[2021-04-27] MEDS: ALBUTEROL SO4 2.5/IPRATROPIUM 0.5 INH SOL 3 ML VIAL.NEB. NEB SCH ×3 (19:06→19:45)
[2021-04-28 14:07] LABS: SARS-CoV-2 NAA Not Detected (Not Detected)
== END 2021-04-27 21:00 | disposition home or self-care (01) ==
LOC: JER 18:08
PROC: 3E0F7GC Introduction of Other Therapeutic Substance into Respiratory Tract, Via Natural or Artificial Opening (ICD-10-PCS; principal; 2021-04-27)
DX: R05.1 Acute cough (principal)
CPT/HCPCS: 71046-TC-FY; 87804; 93005; 93010; 99285-25; C9803; U0003; U0005

== ENCOUNTER 2021-05-29 21:46 | Emergency (ER) | payer OTHER ==
[2021-05-29] MEDS ORDERED: LORATADINE 10 MG TABLET PO ONE (22:45)
[2021-05-29 23:11] VITALS: BP 107/68; PULSE 80; TEMP 98.3; BMI 16.5
[2021-05-30 02:54] LABS: HIV INTERPRETATION NEGATIVE (NEGATIVE)
== END 2021-05-29 23:40 | disposition home or self-care (01) ==
LOC: JERFT 21:46 → JER 21:46 → JERFT 23:40
DX: R21 Rash and other nonspecific skin eruption (principal)
CPT/HCPCS: 36415; 86780; 87389; 99283-25

== ENCOUNTER 2021-05-31 21:32 | Emergency (ER) | payer OTHER ==
[2021-05-31 21:42] VITALS: BP 100/64; PULSE 80; TEMP 98.1; BMI 17.4
== END 2021-05-31 22:41 | disposition home or self-care (01) ==
LOC: JERFT 21:32 → JER 21:32 → JERFT 22:41
DX: L30.9 Dermatitis, unspecified (principal)
CPT/HCPCS: 99281-25

== ENCOUNTER 2022-02-03 20:58 | Emergency (ER) | payer OTHER ==
[2022-02-03 21:13] VITALS: BP 102/63; PULSE 92; RESP 20; TEMP 98.6; BMI 16.5
[2022-02-03] MEDS ORDERED: IBUPROFEN 400 MG TABLET (FP) PO ONE (21:29)
== END 2022-02-03 22:44 | disposition home or self-care (01) ==
LOC: JER 20:58
DX: J06.9 Acute upper respiratory infection, unspecified (principal)
CPT/HCPCS: 0241U-QW; 99283-25